=== PATIENT | female | born 1955 | race Caucasian/White ===

== ENCOUNTER 2018-11-08 20:27 | Emergency (ER) | payer BC ==
--- NOTE | 2018-11-08 21:40 | XRAY Report ---
Reason: INJURY Procedure Date: 11/08/2018 Accession Number: [id number] / [id number] Procedure: XR - Ankle 3 View LT CPT Code: FULL RESULT: EXAM: LEFT ANKLE RADIOGRAPHY EXAM DATE: 11/08/2018 09:25 PM. CLINICAL HISTORY: INJURY. COMPARISON: None. TECHNIQUE: 3 views. FINDINGS: Bones: Normal. No fractures or bone lesions. Joints: Normal. No effusion. No subluxations. The ankle mortise is normally aligned. Soft Tissues: There is soft tissue swelling over the lateral malleolus. IMPRESSION: 1. Soft tissue swelling. No evidence for fractures. [facility]
--- NOTE | 2018-11-08 21:41 | XRAY Report ---
Reason: INJURY Procedure Date: 11/08/2018 Accession Number: [id number] / [id number] Procedure: XR - Foot 3 View LT CPT Code: FULL RESULT: EXAM: LEFT FOOT RADIOGRAPHY EXAM DATE: 11/08/2018 09:25 PM. CLINICAL HISTORY: INJURY. COMPARISON: None. TECHNIQUE: 3 views. FINDINGS: Bones: Normal. No fractures or bone lesions. Joints: Normal. No subluxations. Soft Tissues: Normal. No soft tissue swelling. IMPRESSION: Normal foot radiography. [facility]
--- NOTE | 2018-11-08 21:41 | XRAY Report ---
Reason: injury Procedure Date: 11/08/2018 Accession Number: [id number] / [id number] Procedure: XR - Foot 3 View RT CPT Code: FULL RESULT: EXAM: RIGHT FOOT RADIOGRAPHY EXAM DATE: 11/08/2018 09:25 PM. CLINICAL HISTORY: Injury. COMPARISON: None. TECHNIQUE: 3 views. FINDINGS: Bones: Normal. No fractures or bone lesions. Joints: Normal. No subluxations. Soft Tissues: Normal. No soft tissue swelling. IMPRESSION: Normal foot radiography. [facility]
[2018-11-08] MEDS ORDERED: oxyCODONE 5 MG TABLET PO STA (22:54)
--- NOTE | 2018-11-08 23:25 | ED Physician Documentation ---
History of Present Illness - Stated complaint Stated Complaint: BILAT ANKLE INJ - Chief complaint Chief Complaint: Ext Problem - History obtained from History obtained from: Patient, Family - History of Present Illness Timing: Today Pain level max: 7 Pain level now: 7 Improved by: Rest Worsened by: Walking - Additonal information Additional information: 63-year-old female states that she fell today, twisting the right ankle and right foot. As she was getting up she then twisted the left ankle and left foot. States she heard a pop and felt swelling. States she now has difficulty bearing weight. Review of Systems Constitutional: denies: Fever, Chills Musculoskeletal: denies: Neck pain, Back pain Neurologic: denies: Focal weakness, Numbness, Head injury PD PAST MEDICAL HISTORY - Past Medical History Past Medical History: Yes Cardiovascular: Hypertension, High cholesterol, Coronary artery disease Respiratory: None Neuro: CVA Endocrine/Autoimmune: None GI: GERD RICE DRIER: None : None HEENT: None Psych: Bipolar disorder Musculoskeletal: Fibromyalgia Derm: None - Past Surgical History Past Surgical History: Yes Ortho: Spine surgery - Present Medications Home Medications: Ambulatory Orders Medication Instructions Recorded Confirmed Oxycodone HCl/Acetaminophen 1 - 2 each PO Q6H PRN #14 tablet 11/08/18 [Percocet 5-325 mg Tablet] - Allergies Allergies/Adverse Reactions: Allergies Allergy/AdvReac Type Severity Reaction Status Date / Time No Known Drug Allergies Allergy Verified 11/08/18 20:42 - Social History Does the pt smoke?: Yes Smoking Status: Current every day smoker Does the pt drink ETOH?: No Does the pt have substance abuse?: No - Immunizations Immunizations are current?: No Immunizations: TDAP >10years/unknown - POLST Patient has POLST: No PD ED PE NORMAL - Vitals Vital signs reviewed: Yes - General General: Alert and oriented X 3, No acute distress - HEENT HEENT: Moist mucous membranes - Neck Neck: Supple, no meningeal sign - Derm Derm: Warm and dry - Extremities Extremities: Other (Right ankle and foot - No tenderness over the ankle. No swelling. There is mild tenderness over the dorsum of the foot. Neurovascularly intact. L ankle/foot - Tender to palpation over the lateral malleolus and foot. Mild swelling. Neurovascularly intact. Otherwise normal exam) - Neuro Neuro: Alert and oriented X 3 Results - Vitals Vitals: Oxygen O2 Source Room air - Rads (name of study) R foot xray Radiology: Prelim report reviewed, EMP read contemporaneously, See rad report (No acute bony abnormality) L ankle xray Radiology: Prelim report reviewed, EMP read contemporaneously, See rad report (No acute bony abnormality) L foot xray Radiology: Prelim report reviewed, EMP read contemporaneously, See rad report (No acute bony abnormality) PD MEDICAL DECISION MAKING - ED course Complexity details: reviewed results, re-evaluated patient, considered differential, d/w patient ED course: 63-year-old female with bilateral ankle sprains. Left is worse than the right. No acute findings on x-rays. No indication for x-ray of the right ankle. Negative ankle rules. We will follow-up with her PCP for further care. Placed in an Aircast for comfort and given a walker. Patient counseled regarding signs and symptoms for which I believe and urgent re-evaluation would be necessary. Patient with good understanding of and agreement to plan and is comfortable goi ng home at this time This document was made in part using voice recognition software. While efforts are made to proofread this document, sound alike and grammatical errors may occur. Departure - Departure Disposition: 01 Home, Self Care Clinical Impression: Ankle sprain Qualifiers: Encounter type: initial encounter Involved ligament of ankle: unspecified ligament Laterality: right Qualified Code(s): S93.401A - Sprain of unspecified ligament of right ankle, initial encounter Left ankle sprain Qualifiers: Encounter type: initial encounter Involved ligament of ankle: unspecified ligament Qualified Code(s): S93.402A - Sprain of unspecified ligament of left ankle, initial encounter Condition: Good Instructions: ED Sprain Ankle W X Ray Follow-Up: your,doctor in 1 week [Other] Prescriptions: Oxycodone HCl/Acetaminophen [Percocet 5-325 mg Tablet] 1 - 2 each PO Q6H PRN #14 tablet PRN Reason: pain Comments: Return if you worsen. Follow-up with your doctor for further care. Your x-rays are negative today. You may bear weight as tolerated. Do not drink alcohol or drive while on narcotic pain medicine. Note that many narcotic pain relievers also contain tylenol/acetaminophen. Please ensure that your total dose of acetaminophen from all sources does not exceed 3 grams (3000mg) per day. You may constipated on this medication, take a stool softener such as "Colace" twice a day while you are on it. Also recommend a [id number] laxative such as senna or MiraLAX any day that you do not have a bowel movement. If you received narcotic pain medication in the emergency department, do not drive or operate machinery for the next 24 hours. Discharge Date/Time: 11/08/18 23:50
[2018-11-08 23:33] VITALS: BP 152/86
== END 2018-11-08 23:50 | disposition home or self-care (01) ==
LOC: ED 20:27
DX: S93.401A Sprain of unspecified ligament of right ankle, initial encounter (principal); S93.402A Sprain of unspecified ligament of left ankle, initial encounter; V48.4XXA Person boarding or alighting a car injured in noncollision transport accident, initial encounter; X50.1XXA Overexertion from prolonged static or awkward postures, initial encounter; I10 Essential (primary) hypertension; F17.200 Nicotine dependence, unspecified, uncomplicated
CPT/HCPCS: 73610; 73630; 99284; A9270